=== PATIENT | male | born 1950 | race Caucasian/White ===

== ENCOUNTER 2016-08-04 07:01 | Outpatient (CLI) | payer MEDICARE, OTHER ==
[2015-10-06 14:52] VITALS: BP 124/72
[2016-08-04 08:05] LABS: eGFR (African) > 60; eGFR (Non-African) > 60
== END 2016-08-04 07:02 ==
LOC: LAB 07:01
PROVIDERS: ATTEND Family Medicine
DX: I10 Essential (primary) hypertension (principal); E78.5 Hyperlipidemia, unspecified
CPT/HCPCS: 36415; 80053; 80061

== ENCOUNTER 2017-02-08 07:10 | Outpatient (CLI) | payer MEDICARE, OTHER ==
[2015-10-06 14:52] VITALS: BP 124/72
== END 2017-02-08 07:11 ==
LOC: LAB 07:10
PROVIDERS: ATTEND Family Medicine
DX: E78.5 Hyperlipidemia, unspecified (principal)
CPT/HCPCS: 36415; 80061

== ENCOUNTER 2017-08-12 07:43 | Outpatient (CLI) | payer MEDICARE, OTHER ==
[2015-10-06 14:52] VITALS: BP 124/72
[2017-08-12 08:42] LABS: BASOPHILS % 2.6 (0.0-1.5); MEAN CORPUSCULAR HEMOGLOBIN 30.9 pg (28.0-34.0); MEAN CORPUSCULAR VOLUME 92.8 fl (80.0-100.0); MONOCYTES % 6.2 % (0.0-11.0); NEUTROPHILS # 2.7 # k/uL (1.4-7.7)
[2017-08-12 09:09] LABS: eGFR (African) > 60; eGFR (Non-African) > 60
--- NOTE | 2017-08-12 19:31 | Diagnostic Imaging Report ---
ALEAH ALMARAZ [facility] [address] [facility] [address] [place] [address]. [id number] Report Submission Date: Aug 12, 2017 10:20:54 AM SCAFFOLD SETTER Patient Study Name: DILLAN LEO Date: Aug 12, 2017 10:02:30 AM SCAFFOLD SETTER Modality Type: CR Gender: M Description: SHOULDER : 46 Institution: [facility] Physician: ALEAH ALMARAZ Examination: Plain film left shoulder History: LEFT SHOULDER, DECREASED ROM OF LEFT SHOULDER WITH PAIN IN SHOULDER JOINT X2-3 MONTHS, NO KNOWN INJURY (Hx) / DECREASED ROM OF LEFT SHOULDER (DICOM Hx) / DECREASED ROM OF LEFT SHOULDER (Pt comments) Comparison exams: None provided Findings: 2 views of the left shoulder demonstrates articular degenerative changes. Questionable ossific lucency involving the lateral femoral head - identified on AP internal image. No dislocation. Acromioclavicular joint ossific spurring. No soft tissue abnormality. Impression: Articular degenerative changes. Questionable lucency involving the femoral head - degenerative spur versus traumatic avulsion. Consider obtaining CT shoulder to better evaluate. If suspect rotator cuff injury, consider obtaining MRI to further evaluate. Electronically signed on Aug 12, 2017 10:20:54 AM SCAFFOLD SETTER by: Lemuel WAHL
== END 2017-08-12 07:44 ==
LOC: LAB 07:43
PROVIDERS: ATTEND Family Medicine
DX: Z51.81 Encounter for therapeutic drug level monitoring (principal); I10 Essential (primary) hypertension; E78.5 Hyperlipidemia, unspecified; M25.512 Pain in left shoulder
CPT/HCPCS: 36415; 73030; 80053; 80061; 85025

== ENCOUNTER 2017-09-14 03:07 | Emergency (ER) | payer MEDICARE, OTHER ==
--- NOTE | 2017-09-14 03:35 | ED Physician Documentation ---
Abdominal Pain - HISTORIAN Historian: patient, spouse - HPI Chief Complaint: Abdominal Pain Additonal Information: diffuse genl abd l pain onset 3 d ago-had diarrhea sl better-- somewhat colicy ret tonite. worse approx 2299--ate chicken tenders approx 1999 Onset: days ago (3) Duration: waxing, waning Timing: worse Context: denies: out of country travel Severity: moderate Quality: pain, cramping Associated Symptoms: none, nausea. denies: fever, chills, vomiting, coffee ground emesis, loss of appetite Exacerbated by: food (maybe) Relieved by: remaining still - ROS CONST: no problems GI/: none, constipation, black stools, bloody urine, bloody stools, dark urine CVS/RESP: none EYES/ENT: denies: problems with vision MS/SKIN/LYMPH: none NEURO/PSYCH: none - SOCIAL HX Smoking History: non-smoker Alcohol Use: none Drug Use: none - FAMILY HX Family History: no significant history - PAST HX Past History: none Other History: none Allergies/Adverse Reactions: Allergies Allergy/AdvReac Type Severity Reaction Status Date / Time amoxicillin Allergy Intermediate Rash Verified 09/14/17 03:57 - VITAL SIGNS Vital Signs: Vital Signs Temp Pulse Resp BP Pulse Ox 97.3 F L 72 16 149/82 95 09/14/17 03:08 09/14/17 03:08 09/14/17 03:08 09/14/17 03:08 09/14/17 03:08 - REVIEWED ASSESSMENTS Nursing Assessment Reviewed: Yes Vitals Reviewed: Yes ED Results Lab/Radiology - Lab Results Lab Results: Lab Results 09/14/17 09/14/17 09/14/17 03:44 03:44 03:44 WBC 9.70 K/ul K/ul (4.00-12.00) RBC 4.85 M/ul M/ul (3.90-5.20) Hgb 14.9 g/dL g/dL (12.0-18.0) Hct 44.3 % % (37.0-53.0) MCV 91.2 fl fl (80.0-100.0) MCH 30.6 pg pg (28.0-34.0) MCHC 33.6 g/dL g/dL (30.0-36.0) RDW 13.2 % % (11.3-14.3) Plt Count 323 K/mm3 K/mm3 (130-400) Neut % (Auto) 74.6 % % (39.0-79.0) Lymph % (Auto) 15.2 % L % (16.0-50.0) Geary % (Auto) 6.1 % % (0.0-11.0) Eos % (Auto) 1.9 % % (0.0-6.8) Baso % (Auto) 0.6 (0.0-1.5) Neut # (Auto) 7.2 # k/uL # k/uL (1.4-7.7) Lymph # (Auto) 1.5 # k/uL # k/uL (0.6-4.0) Geary # (Auto) 0.6 # k/uL # k/uL (0.0-0.9) Eos # (Auto) 0.2 # k/uL # k/uL (0.0-0.6) Baso # (Auto) 0.1 # k/uL # k/uL (0.0-0.5) Reactive Lymphs % 1.6 % % (0.0-5.0) Reactive Lymphs # 0.2 # k/uL # k/uL (0.0-0.8) Sodium 139 mmol/L mmol/L (136-145) Potassium 4.2 mmol/L mmol/L (3.5-5.1) Chloride 97 mmol/L L mmol/L (98-107) Carbon Dioxide 32 mmol/L H mmol/L (22-30) BUN 22 mg/dL H mg/dL (9-20) Creatinine 0.80 mg/dL mg/dL (0.66-1.25) Estimated Creat Clear 153 Est GFR ( Amer) > 60 (60 - ) Est GFR (Non-Af Amer) > 60 (60 - ) Glucose 129 mg/dL H mg/dL (74-106) Calcium 9.2 mg/dL mg/dL (8.4-10.2) Total Bilirubin 0.8 mg/dL mg/dL (0.2-1.3) AST 54 U/L H U/L (15-46) ALT 35 U/L U/L (13-69) Alkaline Phosphatase 83 U/L U/L (38-126) Total Protein 7.5 g/dL g/dL (6.3-8.2) Albumin 4.0 g/dL g/dL (3.5-5.0) Lipase 117 U/L U/L (23-300) - Radiology Radiology Impressions: xray reveals xs gas and feces - Orders Orders: ED Orders Category Date Time Status ABD SERIES PA CHEST [RAD] Stat Exams 09/14/17 Ordered CBC/PLATELET/DIFF Routine Lab 09/14/17 03:44 Completed CMP Routine Lab 09/14/17 03:44 Completed LIPASE Stat Lab 09/14/17 03:44 Completed URINALYSIS Routine Lab 09/14/17 Ordered Abdominal Pain Physical Exam - Physical Exam General Appearance: mild distress, moderate distress EENT: eye inspection normal NECK: normal inspection, thyroid normal, supple RESPIRATORY: no resp distress, chest non-tender, breath sounds normal CVS: reg rate & rhythm, heart sounds normal, equal pulses ABDOMEN: soft, non-tender, tenderness. No: no distension, abnormal bowel sounds (diminished), tympanic BS BACK: normal inspection SKIN: warm/dry, normal color. No: cyanosis, diaphoresis, jaundice EXTREMITIES: non-tender, normal range of motion NEURO: oriented X3, CN's nml as tested, motor nml, sensation nml, mood/affect nml Vital Signs: Vital Signs Temp Pulse Resp BP Pulse Ox 97.3 F L 72 16 149/82 95 09/14/17 03:08 09/14/17 03:08 09/14/17 03:08 09/14/17 03:08 09/14/17 03:08 Discharge Clincal Impression: un dx abdominal pain, xs gas feces Referrals: Steffen Cardenas MD [Primary Care Provider] - 2 Days Comments: home consider laxative such as mg citrate - drink plenty water Condition: Good Disposition: 01 HOME, SELF-CARE Decision to Admit: NO Decision Time: 05:08
[2017-09-14 03:47] LABS: BASOPHILS % 0.6 (0.0-1.5); EOSINOPHILS % 1.9 % (0.0-6.8); MEAN CORPUSCULAR HEMOGLOBIN 30.6 pg (28.0-34.0); MEAN CORPUSCULAR VOLUME 91.2 fl (80.0-100.0); MONOCYTES % 6.1 % (0.0-11.0); NEUTROPHILS # 7.2 # k/uL (1.4-7.7)
[2017-09-14 04:08] LABS: eGFR (African) > 60; eGFR (Non-African) > 60
[2017-09-14 05:12] VITALS: BP 136/68
[2017-09-14 06:26] LABS: APPEARANCE,URINE CLEAR (CLEAR); COLOR,URINE YELLOW (YELLOW); OCCULT BLOOD,URINE NEGATIVE (NEGATIVE); PH URINE 6.5 (5.0 - 8.0); UROBILINOGEN URINE 0.2 Eu (0.2-1.0)
--- NOTE | 2017-09-16 17:39 | Diagnostic Imaging Report ---
ROXANNA LYNN [facility] [address] [facility] [address] [place] [address]. [id number] Report Submission Date: Sep 14, 2017 4:28:45 AM CDT Patient Study Name: DILLAN LEO Date: Sep 14, 2017 3:52:36 AM CDT Modality Type: DX Gender: M Description: ABDOMEN : 46 Institution: [facility] Physician: ROXANNA LYNN History: 67 year old female with abdominal pain. Technique: Supine and upright views of the abdomen were performed. Frontal view of the chest was performed. Comparison: None Impression: 1. No acute intrathoracic process. 2. No evidence of bowel obstruction. 3. 17 mm calculus overlies the left renal inferior pole. 4. Advanced lumbar degenerative disc disease. Electronically signed on Sep 14, 2017 4:28:45 AM CDT by: Bao Kwan Addendum: History should read: 67 year old male with abdominal pain. Addendum electronically signed by Marcos Keane on September 16, 2017 3:59:52 AM CDT [facility]
== END 2017-09-14 05:05 | disposition home or self-care (01) ==
LOC: ED 03:07
DX: R10.9 Unspecified abdominal pain (principal); K56.41 Fecal impaction
CPT/HCPCS: 74022; 80053; 81002; 83690; 85025; 99283

== ENCOUNTER 2017-09-20 10:13 | Outpatient (CLI) | payer MEDICARE, OTHER ==
--- NOTE | 2017-09-20 11:39 | Diagnostic Imaging Report ---
ALEAH ALMARAZ [facility] [address] [facility] [address] [place] [address]. [id number] Report Submission Date: Sep 20, 2017 11:30:33 AM CDT Patient Study Name: DILLAN LEO Date: Sep 20, 2017 10:41:00 AM CDT Modality Type: DX Gender: M Description: LOWER EXTREMITY : 46 Institution: [facility] Physician: ALEAH ALMARAZ Examination: Plain film right knee History: BILAT KNEE PAIN (Hx) Findings: 4 views of the right knee with standing imaging demonstrates tibial spine, medial/lateral, and patellar spurring. Medial joint space narrowing. No evidence for fracture. No joint effusion. No posterior vascular calcifications. Impression: Moderate to advanced articular degenerative changes. No evidence for fracture. Electronically signed on Sep 20, 2017 11:30:33 AM CDT by: Lemuel WAHL
--- NOTE | 2017-09-20 11:40 | Diagnostic Imaging Report ---
ALEAH ALMARAZ [facility] [address] [address] [facility] [address] [place] [address]. [id number] Report Submission Date: Sep 20, 2017 11:30:05 AM CDT Patient Study Name: DILLAN LEO Date: Sep 20, 2017 10:33:40 AM CDT Modality Type: DX Gender: M Description: LOWER EXTREMITY : 46 Institution: [facility] Physician: ALEAH ALMARAZ Examination: Plain film left knee History: BILAT KNEE PAIN (Hx) Findings: 4 views of the left knee with standing imaging demonstrates tibial spine, medial/lateral, and patellar spurring. Medial joint space narrowing. No evidence for fracture. No joint effusion. No posterior vascular calcifications. Impression: Moderate to advanced articular degenerative changes. No evidence for fracture. Electronically signed on Sep 20, 2017 11:30:05 AM CDT by: Lemuel WAHL
--- NOTE | 2017-09-20 11:43 | Diagnostic Imaging Report ---
ALEAH ALMARAZ [facility] [address] [address] [facility] [address] [place] [address]. [id number] Report Submission Date: Sep 20, 2017 11:30:05 AM CDT Patient Study Name: DILLAN LEO Date: Sep 20, 2017 10:33:40 AM CDT Modality Type: DX Gender: M Description: LOWER EXTREMITY : 46 Institution: [facility] Physician: ALEAH ALMARAZ Examination: Plain film left knee History: BILAT KNEE PAIN (Hx) Findings: 4 views of the left knee with standing imaging demonstrates tibial spine, medial/lateral, and patellar spurring. Medial joint space narrowing. No evidence for fracture. No joint effusion. No posterior vascular calcifications. Impression: Moderate to advanced articular degenerative changes. No evidence for fracture. Electronically signed on Sep 20, 2017 11:30:05 AM CDT by: Lemuel WAHL
--- NOTE | 2017-09-20 11:45 | Diagnostic Imaging Report ---
ALEAH ALMARAZ [facility] [address] [address] [facility] [address] [place] [address]. [address] Report Submission Date: Sep 20, 2017 11:30:33 AM CDT Patient Study Name: DILLAN LEO Date: Sep 20, 2017 10:41:00 AM CDT Modality Type: DX Gender: M Description: LOWER EXTREMITY : 46 Institution: [facility] Physician: ALEAH ALMARAZ Examination: Plain film right knee History: BILAT KNEE PAIN (Hx) Findings: 4 views of the right knee with standing imaging demonstrates tibial spine, medial/lateral, and patellar spurring. Medial joint space narrowing. No evidence for fracture. No joint effusion. No posterior vascular calcifications. Impression: Moderate to advanced articular degenerative changes. No evidence for fracture. Electronically signed on Sep 20, 2017 11:30:33 AM CDT by: Lemuel WAHL
== END 2017-09-20 10:14 ==
LOC: RAD 10:13
PROVIDERS: ATTEND Family Medicine
DX: M25.561 Pain in right knee (principal); M25.562 Pain in left knee
CPT/HCPCS: 73565

== ENCOUNTER 2018-08-09 10:09 | Outpatient (CLI) | payer MEDICARE, OTHER ==
[2018-08-09 10:28] LABS: EOSINOPHILS % 4.8 % (0.0-6.8); MEAN CORPUSCULAR HEMOGLOBIN 31.3 pg (28.0-34.0); MONOCYTES % 6.4 % (0.0-11.0); NEUTROPHILS # 4.3 # k/uL (1.4-7.7)
[2018-08-09 11:01] LABS: eGFR (Non-African) > 60
== END 2018-08-09 10:12 ==
LOC: LAB 10:09
PROVIDERS: ATTEND Family Medicine
DX: I10 Essential (primary) hypertension (principal); E78.5 Hyperlipidemia, unspecified
CPT/HCPCS: 36415; 80053; 80061; 85025

== ENCOUNTER 2019-05-08 11:04 | Outpatient (CLI) | payer MEDICARE, OTHER ==
[2019-05-08 11:48] LABS: BASOPHILS % 0.7 % (0.0-1.5); NEUTROPHILS # 5.4 # k/uL (1.4-7.7)
[2019-05-08 11:50] LABS: eGFR (Non-African) > 60
--- NOTE | 2019-05-08 15:13 | Diagnostic Imaging Report ---
PATIENT MR#: [id number] PATIENT PATIENT NAME: DILLAN LEO DATE OF : 1950 REFERRING PHYSICIAN: Saloni Malik EXAM DATE: 05/08/2019 ACCESSION NUMBER: [id number] EXAM DESCRIPTION: US U OR L EXT VEINS UNILAT CLINICAL HISTORY: Right lower extremity swelling, redness, 2 weeks after injury. COMPARISON: None available at the time of interpretation. TECHNIQUE: Duplex ultrasound of the right lower extremity veins was performed with grayscale, color f low imaging and Doppler spectral analysis, without and with compression. RIGHT LOWER EXTREMITY VENOUS DUPLEX ULTRASOUND: There is normal compressibility, flow and augmentation of the common femoral, superficial femoral, po pliteal, posterior tibial, peroneal and greater saphenous veins. IMPRESSION: No evidence of DVT in the right lower extremity. Read by: Dr. Walter Bourne Transcribed by: Walter Bourne Transcribed Date: 05/08/2019 3:12:59 PM Electronically signed by: Dr. Walter Bourne Date signed: 05/08/2019 3:13:09 PM
== END 2019-05-08 11:09 ==
LOC: LAB 11:04
PROVIDERS: ATTEND Nurse Practitioner Family
DX: Z76.89 Persons encountering health services in other specified circumstances (principal); L03.115 Cellulitis of right lower limb; R60.0 Localized edema
CPT/HCPCS: 36415; 80053; 83880; 85025; 93971